=== PATIENT | female | born 1975 | race Caucasian/White ===

== ENCOUNTER 2023-06-06 15:00 | Emergency (ER) | payer OTHER, SELFPAY ==
--- NOTE | ~2023-06-06 | CT_ITS ---
EXAMINATION: CT BRAIN W/O DATE: 06/06/2023 18:22 INDICATION: Head trauma TECHNIQUE: Computed tomography (CT) of the head was performed without intravenous contrast. The dose- length product was 605.33 mGy-cm. Automated exposure control and iterative reconstruction technique w ere employed. COMPARISON: No prior studies for comparison. FINDINGS: Normal brain parenchymal volume for age. Normal siegel-white differentiation. No acute intrac ranial hemorrhage, infarction, mass or mass effect. No ventriculomegaly or midline shift. Midline sagittal images demonstrate a normal corpus callosum, c raniovertebral junction and sella turcica. Basilar cisterns are patent. There is mucosal thickening of the ethmoid sinuses. Mastoids are pneumatized. No depressed skull frac tures. IMPRESSION: 1. No acute intracranial abnormality. Reviewed, dictated and finalized at location A. ITURE INSPECTOR
[2023-06-06 15:15] VITALS: BP 147/88; PULSE 73; RESP 18; TEMP 36.5; O2SAT 100
--- NOTE | 2023-06-06 17:48 | ED.GENADULT ---
HPI - General Adult General Chief complaint: Head Injury Stated complaint: hit head Time Seen by Provider: 06/06/23 17:00 Source: patient Mode of arrival: ambulatory Limitations: no limitations History of Present Illness HPI narrative: This is a 47-year-old female presents to the ED with chief complaint of Head injury that occurred at 12:30 p.m. today. She was at work when she was struck in head with a heavy cart. Reports she was struck in the front of the head and has had a frontal headache ever since. Reports some right-sided paresthesias in the face. She also reports history of migraines and feels like she may have a migraine coming on from the injury. Reports some nausea but no vomiting. Denies syncope, problems with ambulation, speech change, vision change, any further sites of pain or injury Related Data Allergies Allergy/AdvReac Type Severity Reaction Status Date / Time ketorolac [From Toradol] AdvReac Gastrointestinal Verified 06/06/23 18:16 Upset prochlorperazine AdvReac Jittery Verified 06/06/23 18:15 [From Compazine] Review of Systems Review of Systems: All systems as dictated in HPI Exam Narrative: GENERAL: Well-appearing, well-nourished, and in no acute distress. HEAD: Normocephalic, atraumatic. EYES: PERRLA and EOMI. ENT: Nares clear, no rhinorrhea or epistaxis. Mucous membranes moist. Oropharynx without tonsillar hypertrophy exudate or other lesions. NECK: Supple. No adenopathy or masses. CHEST: No respiratory distress. Clear to auscultation. No wheezes rales or rhonchi HEART: Regular rate and rhythm. No murmur heard. Normal peripheral pulses. ABDOMEN: Soft, nontender, nondistended, normal active bowel sounds. MSK: Normal range of motion. No edema. SKIN: Warm, dry, no rash. NEURO: Alert and oriented x4. subjective altered sensation to the right V1 V2 Maxillary Branches. otherwise no focal deficits. Cranial nerves fully intact otherwise. No motor deficits appreciated. Negative pronator drift. Normal finger-nose. Ambulatory without difficulty. No dysarthria. No nystagmus. PSYCH: Normal mood and affect. Course Vital Signs Vital signs: Vital Signs Temperature 97.7 F 06/06/23 15:15 Pulse Rate 73 06/06/23 15:15 Respiratory Rate 18 06/06/23 15:15 Blood Pressure 147/88 H 06/06/23 15:15 Pulse Oximetry 100 06/06/23 15:15 Temperature 97.7 F 06/06/23 15:15 Pulse Rate 72 06/06/23 19:27 Respiratory Rate 20 06/06/23 19:27 Blood Pressure 125/72 06/06/23 19:27 Pulse Oximetry 100 06/06/23 19:27 Medical Decision Making MDM Narrative Medical decision making narrative: this is a 47-year-old female who presents to the ED with chief complaint of a head injury that occurred work today. Vitals are normal. She has subjective paresthesias numbness to the right side of the face following the injury. Otherwise neuro exam is fully intact. No motor deficits appreciated. CT brain is normal. She has a history of chronic migraines and feels like he injury today is precipitating a typical migraine for her. I suspect that this is the likely causative factor facial paresthesias. Migraine cocktail was given with moderate relief. Pt will be discharged in stable condition. Return precautions given and supportive measures discussed. Pt is understanding and agreeable with plan for discharge and follow-up with PCP. Vital Signs Vital Signs: Vital Signs Temperature 97.7 F 06/06/23 15:15 Pulse Rate 73 06/06/23 15:15 Respiratory Rate 18 06/06/23 15:15 Blood Pressure 147/88 H 06/06/23 15:15 Pulse Oximetry 100 06/06/23 15:15 Temperature 97.7 F 06/06/23 15:15 Pulse Rate 72 06/06/23 19:27 Respiratory Rate 20 06/06/23 19:27 Blood Pressure 125/72 06/06/23 19:27 Pulse Oximetry 100 06/06/23 19:27 Discharge Plan Discharge Clinical Impression: Closed head injury Patient Disposition: Home, Self-Care
[2023-06-06] MEDS: SODIUM CHLORIDE 0.9% IV 1,000 ML 999 ML IV CONT (18:15)
[2023-06-06] MEDS: ACETAMINOPHEN 500 MG TABLET 1000 MG PO (18:38)
[2023-06-06] MEDS: diphenhydrAMINE HCl INJ 50 MG/ML VIAL 25 MG IV PUSH (18:39)
[2023-06-06] MEDS: MAGNESIUM SULF 2 GM/WATER 50ML 2 GM/50 ML BAG IVPB (18:51)
[2023-06-06 19:27] VITALS: BP 125/72; PULSE 72; RESP 20; O2SAT 100
== END 2023-06-06 19:55 | disposition home or self-care (01) ==
PROVIDERS: Emergency Provider Physician Assistant
DX: S09.90XA Unspecified injury of head, initial encounter (principal); W22.8XXA Striking against or struck by other objects, initial encounter
CPT/HCPCS: 70450; 96365; 96375; 99284; A9270; J1200; J3475; J7030

== ENCOUNTER 2023-08-09 09:56 | Emergency (ER) | payer OTHER, SELFPAY ==
[2023-08-09 10:20] VITALS: BP 104/76; PULSE 88; RESP 16; TEMP 37.4; O2SAT 99
[2023-08-09 10:51] VITALS: BP 104/76; PULSE 88; RESP 16; TEMP 37.4; O2SAT 99
--- NOTE | 2023-08-09 11:09 | ED.URI ---
HPI - URI/Sore Throat General Chief Complaint: Upper Respiratory Infection Stated Complaint: Cough/Asthma Time Seen by Provider: 08/09/23 11:10 Source: patient, RN notes reviewed and old records reviewed Mode of arrival: ambulatory Limitations: no limitations History of Present Illness HPI Narrative: 48-year-old female who presents to [facility] complaints of continued cough since having RSV in June. Patient reports that she has used inhaler but continues to have cough with some expectoration of clear mucus, denies any fevers chills or sweats or any body aches. Patient does report that she feels some shortness of breath at times especially with activity. MD elicited complaint: cough and other (Clear mucus) Onset (ago): month(s) (2) Description of mucous: clear Able to tolerate fluids by mouth: Yes Treatments prior to arrival: other (Has used inhaler) Related Data Home Medications Medication Instructions Recorded Confirmed albuterol sulfate 90 mcg/actuation inhalation 08/09/23 aerosol inhaler Allergies Allergy/AdvReac Type Severity Reaction Status Date / Time ketorolac [From Toradol] AdvReac Gastrointestinal Verified 08/09/23 10:20 Upset prochlorperazine AdvReac Jittery Verified 08/09/23 10:20 [From Compazine] Review of Systems Review of Systems: CONSTITUTIONAL: Denies malaise, chills, sweats, or fever. EYES: Denies visual changes, redness, or discharge. ENT: Reports no rhinorrhea, congestion, sinus pain, otalgia and sore throat. CARDIOVASCULAR: Denies chest pain, palpitations, or edema. RESPIRATORY: Reports cough.? Report some dyspnea with exertion. GASTROINTESTINAL: Denies abdominal pain, nausea, vomiting, diarrhea SKIN: Denies rash or itching. MUSCULOSKELETAL: Denies myalgia. NEUROLOGIC: Denies headache. All systems reviewed & are unremarkable except as noted in HPI and below PMFSH Past Medical History Medical History (Updated 08/10/23 @ 19:25 by Mallika Sims NP) Asthma Bronchitis COVID-19 History of RSV infection Surgical History Surgical History (Updated 08/10/23 @ 19:26 by Mallika Sims NP) H/O: hysterectomy Social History Social History (Updated 08/10/23 @ 19:23 by Mallika L. Bethany, WEB DEVELOPMENT MANAGER) Smoking status: Current every day smoker Tobacco type: e-cigarettes/vaping Living arrangements: with family Gender identity (if verbalized by the patient): Female Comments At time of signature, agree with nursing past medical, surgical, social and family history. There is no relevant family history pertinent to the presenting complaint Exam Narrative: GENERAL: Well-appearing, well-nourished, and in no acute distress. HEAD: Normocephalic EYES: PERRLA, conjunctivae clear ENT: Nares clear, turbinates edematous and erythematous, clear discharge. Mucous membranes moist. TM pearly siegel with dull light reflex bilaterally; no tragal tenderness. Oropharynx erythematous without lesions. Tonsils not enlarged and without exudate, no drooling, no hoarseness, no trismus, uvula midline. NECK: Supple. No lymphadenopathy CHEST: Clear to auscultation, breath sounds equal. No wheezing, rhonchi, rales, or stridor. No respiratory distress, speaks in full sentences.cough,SAO2 99% on room air HEART: Regular rate and rhythm. No murmur heard. SKIN: Warm, dry, no rash. NEURO: Alert and oriented x3. PSYCH: Normal mood and affect Course Course Emergency Course: Patient is aware of diagnosis, understands and agrees to treatment plan.? Anticipatory guidance given.? Patient agrees to follow-up as directed and is aware of reasons to seek care at the emergency department. Portions of this record may have been created with voice recognition software Level of Care: Express Care Visit Vital Signs Vital signs: Vital Signs Temperature 37.4 C 08/09/23 10:20 Pulse Rate 88 08/09/23 10:20 Respiratory Rate 16 08/09/23 10:20 Blood Pressure 104
== END 2023-08-09 11:30 | disposition home or self-care (01) ==
PROVIDERS: Emergency Provider Registered Nurse
DX: R05.3 Chronic cough (principal); F17.290 Nicotine dependence, other tobacco product, uncomplicated; J45.909 Unspecified asthma, uncomplicated; Z86.16 Personal history of COVID-19
CPT/HCPCS: 99213; G0463

== ENCOUNTER 2023-08-18 13:48 | Emergency (ER) | payer OTHER, SELFPAY ==
--- NOTE | ~2023-08-18 | XR_ITS ---
EXAMINATION: XR chest 2V DATE: 08/18/2023 14:46 INDICATION: Cough. Shortness of breath. TECHNIQUE: Frontal and lateral views of the chest were obtained. COMPARISON: None. FINDINGS: There is no pneumonia, pleural effusion, or pneumothorax. The heart size is normal. IMPRESSION: 1. No acute cardiopulmonary disease. Reviewed, dictated and finalized at location A. MUNITION STOREKEEPER
[2023-08-18 13:50] VITALS: BP 131/80; PULSE 100; RESP 20; TEMP 36.4; O2SAT 100
--- NOTE | 2023-08-18 13:54 | ECG_ITS ---
Measurements Intervals [place] Rate: 91 P: 59 NH: 147 QRS: -26 QRSD: 89 T: 32 QT: 360 QTc: 444 Interpretive Statements SINUS RHYTHM WITH SINUS ARRHYTHMIA BORDERLINE LEFT AXIS DEVIATION [QRS AXIS < -20] NO PREVIOUS ECG AVAILABLE FOR COMPARISON Electronically Signed On 08-18-2023 15:22:48 GRAIN COMBINER by Stas Clifton M.D.
--- NOTE | 2023-08-18 14:29 | ED.ASTHMA ---
HPI - Asthma General Chief Complaint: Asthma <RICHARD Barreto Last Filed: 08/18/23 14:38> Stated Complaint: asthma <Sabrina Dupont PA-C - Last Filed: 08/18/23 14:38> Time Seen by Provider: 08/18/23 14:29 <Sabrina Dupont PA-C - Last Filed: 08/18/23 14:38> Focused HPI: Patient is a 48-year-old female, past medical history of asthma, who presents the ED with report of shortness breath. Patient reports she was diagnosed with RSV on 06/12/23 and has had persistent symptoms since then. She has been on 2 different courses of steroids and been using her inhalers at home w/o much improvement. Last night, she began having pain in her R sided chest, R upper back last night - worse with movement and taking deep breaths. She began feeling short of breath today at work with any sort of exertion, which prompted her presentation. Denies chest pain at rest. Denies lower extremity pain or swelling. Denies history of blood clots. Denies persistent fevers. GENERAL: Well-appearing, well-nourished, and in no acute distress. HEAD: Normocephalic, atraumatic. CHEST: Clear to auscultation. ?No respiratory distress. No significant focal lung sounds. No wheezing. HEART: Regular rate and rhythm.? MSK: No chest wall tenderness to palpation, unable to reproduce R sided chest/back pain. NEURO: ?Alert and oriented x3. Patient screened in triage and initial orders placed.? ?Additional care and disposition to be based upon?diagnostic testing and treatment. <Sabrina Dupont PA-C - Last Filed: 08/18/23 14:38> Related Data Home Medications: Home Medications Medication Instructions Recorded Confirmed albuterol sulfate 90 mcg/actuation inhalation 08/09/23 aerosol inhaler <RICHARD Barreto Last Filed: 08/18/23 14:38> Allergies/Adverse Reactions: Allergies Allergy/AdvReac Type Severity Reaction Status Date / Time ketorolac [From Toradol] AdvReac Gastrointestinal Verified 08/09/23 10:20 Upset prochlorperazine AdvReac Jittery Verified 08/09/23 10:20 [From Compazine] <Sabrina Dupont PA-C - Last Filed: 08/18/23 14:38> Review of Systems Review of Systems: All systems as dictated in HPI <Gagandeep Boston PA-C - Last Filed: 08/18/23 23:19> PMFSH Past Medical History Medical History: Medical History (Updated 08/18/23 @ 17:40 by Gagandeep Boston PA-C) Asthma Bronchitis COVID-19 History of RSV infection <Sabrina Dupont PA-C - Last Filed: 08/18/23 14:38> Surgical History Surgical History: Surgical History (Updated 08/10/23 @ 19:26 by Mallika Sims NP) H/O: hysterectomy <Sabrina Dupont PA-C - Last Filed: 08/18/23 14:38> Social History Social History: Social History (Updated 08/10/23 @ 19:23 by Mallika Sims NP) Smoking status: Current every day smoker Tobacco type: e-cigarettes/vaping Living arrangements: with family Gender identity (if verbalized by the patient): Female <Sabrina Dupont PA-C - Last Filed: 08/18/23 14:38> Exam Narrative: GENERAL: Well-appearing, well-nourished, and in no acute distress. HEAD: Normocephalic, atraumatic. EYES: PERRLA and EOMI. ENT: Nares clear, no rhinorrhea or epistaxis. Mucous membranes moist. Oropharynx without tonsillar hypertrophy exudate or other lesions. NECK: Supple. No adenopathy or masses. CHEST: No respiratory distress. Mild expiratory wheezes throughout all lung north. Sats 98% room air. Speaks in full sentences HEART: Regular rate and rhythm. No murmur heard. Normal peripheral pulses. ABDOMEN: Soft, nontender, nondistended, normal active bowel sounds. MSK: Normal range of motion. No edema. SKIN: Warm, dry, no rash. NEURO: Alert and oriented x3. No focal deficits. PSYCH: Normal mood and affect. <Gagandeep Boston PA-C - Last Filed: 08/18/23 23:19> Course Vital Signs Vital signs: Vital Signs Temperature 97.6 F
[2023-08-18 14:44] VITALS: O2SAT 100
--- NOTE | 2023-08-18 14:46 | PC.NURSE ---
Pt presented with multiple resp c/o. Able to converse in complete sentences rapidly without shortness of breath. States had RSV 06/12/23 and doesn't feel like she is any better. Voiced concerns that her mother 05/28 with lung cancer and has concerns she has lung cancer.
[2023-08-18 14:59] LABS: Basophils Absolute Auto 0.1 K/mm3 (0.0-0.1); Basophils Percent Auto 0.5 % (0.2-1.2); Eosinophils Absolute Auto 1.2 K/mm3 (0-0.3); Hematocrit 42.3 % (37.0-47.0); Hemoglobin 14.2 g/dL (12.0-15.0); Immature Granulocyte Absolute 0.17 K/mm3 (0.00-0.031); Immature Granulocyte Percent A 1.9 % (0-0.5); Lymphocytes Absolute Auto 0.96 K/mm3 (0.9-3.2); Lymphocytes Percent Auto 10.5 % (18.3-44.2); Mean Corpuscular HGB Conc 33.6 g/dl (32-36); Mean Corpuscular Hemoglobin 30.9 pg (26-34); Mean Corpuscular Volume 92.2 fl (80-100); Mean Platelet Volume 10.7 fl (7.4-10.4); Monocytes Absolute Auto 0.5 K/mm3 (0.1-0.6); Monocytes Percent Auto 5.3 % (2.6-8.5); Neutrophils Absolute Auto 6.3 K/mm3 (1.3-6.7); Neutrophils Percent Auto 68.8 % (45.5-73.1); Platelet Count Result 232 k/mm3 (150-375); Red Blood Count 4.59 M/mm3 (4.2-5.4); Red Cell Distribution Width 12.7 % (11.5-14.5); White Blood Count 9.2 K/mm3 (4.5-10.0)
[2023-08-18 15:10] LABS: INR 0.9; Prothrombin Time 12.8 Seconds (11.1-14.7)
[2023-08-18 15:11] LABS: Partial Thromboplastin Time 29.1 SECONDS (22.3-36.8)
[2023-08-18 15:18] LABS: Alanine Aminotransferase 21 U/L (6-35); Alkaline Phosphatase 79 U/L (38-126); Anion Gap 9 mmol/L (8-16); Aspartate Amino Transferase 30 U/L (14-36); Bilirubin,Total 0.8 mg/dL (0.2-1.3); Blood Urea Nitrogen 16 mg/dL (7-17); Calcium 10.2 mg/dL (8.4-10.2); Carbon Dioxide 26 mmol/L (22-30); Chloride 102 mmol/L (98-107); Estimated CRCL calculation 78 ml/min; Estimated Glomerular Filt Rate > 60; Glucose 92 mg/dL (65-110); Sodium 137 mmol/L (137-145)
[2023-08-18 15:22] LABS: D Dimer 0.34 ug/mL (<0.48)
[2023-08-18 15:27] LABS: Troponin I < 0.012 ng/mL (0.000-0.034)
[2023-08-18 17:02] VITALS: BP 129/79; PULSE 73; RESP 17; O2SAT 100
--- NOTE | 2023-08-18 17:38 | ED.GENADULT ---
HPI - General Adult General Chief complaint: Asthma Stated complaint: asthma Time Seen by Provider: 08/18/23 14:29 Related Data Home Medications Medication Instructions Recorded Confirmed albuterol sulfate 90 mcg/actuation inhalation 08/09/23 aerosol inhaler Allergies Allergy/AdvReac Type Severity Reaction Status Date / Time ketorolac [From Toradol] AdvReac Gastrointestinal Verified 08/09/23 10:20 Upset prochlorperazine AdvReac Jittery Verified 08/09/23 10:20 [From Compazine] [facility] Past Medical History Medical History (Updated 08/18/23 @ 17:40 by Gagandeep Boston PA-C) Asthma Bronchitis COVID-19 History of RSV infection Surgical History Surgical History (Updated 08/10/23 @ 19:26 by Mallika Sims NP) H/O: hysterectomy Social History Social History (Updated 08/10/23 @ 19:23 by Mallika Sims NP) Smoking status: Current every day smoker Tobacco type: e-cigarettes/vaping Living arrangements: with family Gender identity (if verbalized by the patient): Female Course Vital Signs Vital signs: Vital Signs Temperature 97.6 F 08/18/23 13:50 Pulse Rate 100 08/18/23 13:50 Respiratory Rate 20 08/18/23 13:50 Blood Pressure 131/80 08/18/23 13:50 Pulse Oximetry 100 08/18/23 13:50 Oxygen Delivery Room Air 08/18/23 13:50 Temperature 97.6 F 08/18/23 13:50 Pulse Rate 73 08/18/23 17:02 Respiratory Rate 17 08/18/23 17:02 Blood Pressure 129/79 08/18/23 17:02 Pulse Oximetry 100 08/18/23 17:02 Oxygen Delivery Room Air 08/18/23 14:44 Medical Decision Making Vital Signs Vital Signs: Vital Signs Temperature 97.6 F 08/18/23 13:50 Pulse Rate 100 08/18/23 13:50 Respiratory Rate 20 08/18/23 13:50 Blood Pressure 131/80 08/18/23 13:50 Pulse Oximetry 100 08/18/23 13:50 Oxygen Delivery Room Air 08/18/23 13:50 Temperature 97.6 F 08/18/23 13:50 Pulse Rate 73 08/18/23 17:02 Respiratory Rate 17 08/18/23 17:02 Blood Pressure 129/79 08/18/23 17:02 Pulse Oximetry 100 08/18/23 17:02 Oxygen Delivery Room Air 08/18/23 14:44 Lab Data 08/18/23 14:40 08/18/23 14:40 Labs: Lab Results 08/18/23 Range/Units 14:40 WBC 9.2 (4.5-10.0) K/mm3 RBC 4.59 (4.2-5.4) M/mm3 Hgb 14.2 (12.0-15.0) g/dL Hct 42.3 (37.0-47.0) % MCV 92.2 (80-100) fl MCH 30.9 (26-34) pg MCHC 33.6 (32-36) g/dl RDW 12.7 (11.5-14.5) % Plt Count 232 (150-375) k/mm3 MPV 10.7 H (7.4-10.4) fl Immature Gran % (Auto) 1.9 H (0-0.5) % Neut % (Auto) 68.8 (45.5-73.1) % Lymph % (Auto) 10.5 L (18.3-44.2) % [place] % (Auto) 5.3 (2.6-8.5) % Eos % (Auto) 13.0 H (0-4.4) % Baso % (Auto) 0.5 (0.2-1.2) % Lymph # (Auto) 0.96 (0.9-3.2) K/mm3 [place] # (Auto) 0.5 (0.1-0.6) K/mm3 Eos # (Auto) 1.2 H (0-0.3) K/mm3 Baso # (Auto) 0.1 (0.0-0.1) K/mm3 Abs Immat Gran (auto) 0.17 H (0.00-0.031) K/mm3 Absolute Neuts (auto) 6.3 (1.3-6.7) K/mm3 Absolute Nucleated RBC 0.0 (0.0-0.012) K/mm3 Nucleated RBC % 0.0 (0.0-0.2) % PT 12.8 (11.1-14.7) Seconds INR 0.9 APTT 29.1 (22.3-36.8) SECONDS D-Dimer 0.34 (<0.48) ug/mL Sodium 137 (137-145) mmol/L Potassium 4.0 (3.4-5.0) mmol/L Chloride 102 (98-107) mmol/L Carbon Dioxide 26 (22-30) mmol/L Anion Gap 9 (8-16) mmol/L BUN 16 (7-17) mg/dL Creatinine 0.70 (0.7-1.0) mg/dL Estim Creat Clear Calc 78 ml/min Estimated GFR > 60 (59 - ) Glucose 92 (65-110) mg/dL Calcium 10.2 (8.4-10.2) mg/dL Total Bilirubin 0.8 (0.2-1.3) mg/dL AST 30 (14-36) U/L ALT 21 (6-35) U/L Alkaline Phosphatase 79 (38-126) U/L Troponin I < 0.012 (0.000-0.034) ng/mL Total Protein 9.0 H (6.3-8.2) g/dL Albumin 5.0 (3.5-5.1) g/dL Discharge Plan Discharge Clinical Impression: Bronchitis Patient Disposition: Home, Self-Care Condition: Stable Instructions: Antibiotic Form, Asthma (ED)
[2023-08-18 17:52] VITALS: BP 111/84; PULSE 79; RESP 17; TEMP 36.8; O2SAT 98
== END 2023-08-18 17:56 | disposition home or self-care (01) ==
PROVIDERS: Physician Assistant; Emergency Provider Physician Assistant
DX: J40 Bronchitis, not specified as acute or chronic (principal)
CPT/HCPCS: 36415; 71046; 80053; 84484; 85025; 85380; 85610; 85730; 93005; 99284

== ENCOUNTER 2023-08-26 10:37 | Emergency (ER) | payer OTHER, SELFPAY ==
--- NOTE | ~2023-08-26 | XR_ITS ---
Clinical Indication: Shortness of breath PA and lateral views of the chest: Comparison: 08/18/2023 Findings: The lungs are clear, without evidence of focal consolidation or pleural effusion. Cardiome diastinal silhouette is within normal limits. Bones and soft tissues are unremarkable. Impression: Normal chest. Reviewed, dictated and finalized at [facility]. NIGHT CASHIER Impression: Normal chest.
[2023-08-26 10:45] VITALS: BP 130/75; PULSE 90; RESP 21; TEMP 36.7; O2SAT 100
[2023-08-26 11:16] LABS: Basophils Absolute Auto 0.1 K/mm3 (0.0-0.1); Basophils Percent Auto 1.6 % (0.2-1.2); Eosinophils Absolute Auto 0.7 K/mm3 (0-0.3); Eosinophils Percent Auto 18.2 % (0-4.4); Hematocrit 38.8 % (37.0-47.0); Hemoglobin 12.9 g/dL (12.0-15.0); Lymphocytes Absolute Auto 1.12 K/mm3 (0.9-3.2); Lymphocytes Percent Auto 30.4 % (18.3-44.2); Mean Corpuscular HGB Conc 33.2 g/dl (32-36); Mean Corpuscular Hemoglobin 30.5 pg (26-34); Mean Corpuscular Volume 91.7 fl (80-100); Monocytes Absolute Auto 0.3 K/mm3 (0.1-0.6); Monocytes Percent Auto 7.3 % (2.6-8.5); Neutrophils Absolute Auto 1.6 K/mm3 (1.3-6.7); Neutrophils Percent Auto 42.5 % (45.5-73.1); Platelet Count Result 174 k/mm3 (150-375); Red Blood Count 4.23 M/mm3 (4.2-5.4); Red Cell Distribution Width 12.4 % (11.5-14.5); White Blood Count 3.7 K/mm3 (4.5-10.0)
[2023-08-26 11:26] LABS: Alanine Aminotransferase 20 U/L (6-35); Albumin Level 4.6 g/dL (3.5-5.1); Alkaline Phosphatase 59 U/L (38-126); Anion Gap 7 mmol/L (8-16); Aspartate Amino Transferase 28 U/L (14-36); Bilirubin,Total 0.3 mg/dL (0.2-1.3); Blood Urea Nitrogen 12 mg/dL (7-17); Calcium 9.6 mg/dL (8.4-10.2); Carbon Dioxide 22 mmol/L (22-30); Chloride 109 mmol/L (98-107); Estimated Glomerular Filt Rate > 60; Glucose 109 mg/dL (65-110); Potassium 3.2 mmol/L (3.4-5.0); Sodium 138 mmol/L (137-145)
[2023-08-26 11:52] LABS: Influenza A QL RT-PCR Negative (Negative); Influenza B QL RT-PCR Negative (Negative); RSV RNA, RT-PCR Negative (Negative); SARS-CoV-2 RNA PCR Negative (Negative)
--- NOTE | 2023-08-26 13:00 | ED.ASTHMA ---
HPI - Asthma General Chief Complaint: Asthma Stated Complaint: SOB Time Seen by Provider: 08/26/23 10:41 History of Present Illness HPI Narrative: Patient is a 48-year-old female who presents ER with shortness of breath. She was at work when she is coming back in side from a break and she developed sudden onset shortness of breath. She has history of asthma. Wheezing for EMS. Received DuoNeb as well as Solu-Medrol magnesium. No fevers or chills or sweats. No productive cough. Patient is feeling shaking anxious since having her breathing treatments. Related Data Home Medications Medication Instructions Recorded Confirmed albuterol sulfate 90 mcg/actuation inhalation 08/09/23 aerosol inhaler Allergies Allergy/AdvReac Type Severity Reaction Status Date / Time ketorolac [From Toradol] AdvReac Gastrointestinal Verified 08/26/23 10:46 Upset prochlorperazine AdvReac Jittery Verified 08/26/23 10:46 [From Compazine] Review of Systems Constitutional: Constitutional: Reports no additional constitutional complaints ENT: Reports system reviewed and no additional complaints, except as documented Cardiovascular: Cardiovascular: Reports no additional cardiovascular complaints Respiratory: Respiratory: Denies cough, Reports dyspnea and Reports wheezing Gastrointestinal: Gastrointestinal: Reports no additional gastrointestinal complaints Psychiatric: Psychiatric: Reports anxiety PMFSH Past Medical History Medical History (Updated 08/26/23 @ 13:03 by Mayito Clayton MD) Asthma Bronchitis COVID-19 History of RSV infection Surgical History Surgical History (Updated 08/10/23 @ 19:26 by Mallika Sims NP) H/O: hysterectomy Social History Social History (Updated 08/10/23 @ 19:23 by Mallika Sims NP) Smoking status: Current every day smoker Tobacco type: e-cigarettes/vaping Living arrangements: with family Gender identity (if verbalized by the patient): Female Exam Narrative: GENERAL: Well-appearing, well-nourished, and in no acute distress. HEAD: Normocephalic, atraumatic. ENT: Mucous membranes moist. NECK: Supple. CHEST: Clear to auscultation. No respiratory distress. HEART: Regular rate and rhythm. Normal peripheral pulses.. EXTREMITIES: Normal range of motion. No edema. SKIN: Warm, dry, no rash. NEURO: Alert and oriented x3. PSYCH: Normal mood and affect. Course Course Emergency Course: Patient is still feeling some mild anxiety. Will give hydroxyzine. Lab/imaging /viral swab unremarkable. Discharge home with short course steroids and albuterol. Vital Signs Vital signs: Vital Signs Temperature 98.1 F 08/26/23 10:45 Pulse Rate 90 08/26/23 10:45 Respiratory Rate 21 H 08/26/23 10:45 Blood Pressure 130/75 08/26/23 10:45 Pulse Oximetry 100 08/26/23 10:45 Temperature 98.1 F 08/26/23 10:45 Pulse Rate 90 08/26/23 10:45 Respiratory Rate 21 H 08/26/23 10:45 Blood Pressure 130/75 08/26/23 10:45 Pulse Oximetry 100 08/26/23 10:45 MDM - Asthma Lab Data 08/26/23 11:05 08/26/23 11:05 Labs: Lab Results 08/26/23 Range/Units 11:05 WBC 3.7 L (4.5-10.0) K/mm3 RBC 4.23 (4.2-5.4) M/mm3 Hgb 12.9 (12.0-15.0) g/dL Hct 38.8 (37.0-47.0) % MCV 91.7 (80-100) fl MCH 30.5 (26-34) pg MCHC 33.2 (32-36) g/dl RDW 12.4 (11.5-14.5) % Plt Count 174 (150-375) k/mm3 MPV 11.0 H (7.4-10.4) fl Immature Gran % (Auto) 0.0 (0-0.5) % Neut % (Auto) 42.5 L (45.5-73.1) % Lymph % (Auto) 30.4 (18.3-44.2) % [place] % (Auto) 7.3 (2.6-8.5) % Eos % (Auto) 18.2 H (0-4.4) % Baso % (Auto) 1.6 H (0.2-1.2) % Lymph # (Auto) 1.12 (0.9-3.2) K/mm3 [place] # (Auto) 0.3 (0.1-0.6) K/mm3 Eos # (Auto) 0.7 H (0-0.3) K/mm3 Baso # (Auto) 0.1 (0.0-0.1) K/mm3 Abs Immat Gran (auto) 0.00 (0.00-0.031) K/mm3 Absolute Neuts (auto) 1.6 (1.3-6.7) K/mm3 Absolute Nucleated R
[2023-08-26] MEDS: hydrOXYzine HCL 25 MG TABLET PO (13:03)
[2023-08-26 13:11] VITALS: BP 109/64; PULSE 87; RESP 16; O2SAT 97
== END 2023-08-26 13:13 | disposition home or self-care (01) ==
PROVIDERS: Emergency Provider Emergency Medicine
DX: J45.901 Unspecified asthma with (acute) exacerbation (principal); F41.9 Anxiety disorder, unspecified; Z20.822 Contact with and (suspected) exposure to COVID-19; F17.290 Nicotine dependence, other tobacco product, uncomplicated
CPT/HCPCS: 36415; 71046; 80053; 85025; 87637; 99283; A9270

== ENCOUNTER 2023-12-10 16:10 | Emergency (ER) | payer OTHER, SELFPAY ==
--- NOTE | 2023-12-10 16:23 | ED.ASTHMA ---
HPI - Asthma General Chief Complaint: Asthma Stated Complaint: asthma flare up Source: patient Mode of arrival: ambulatory Limitations: no limitations History of Present Illness HPI Narrative: 48-year-old female with a history of asthma presented for complaint of tightness in chest for about 2 weeks and started with wheezing and cough over the past few days. States she had a fever 2 days ago which has resolved; tested negative for Covid x2. Endorses using her albuterol inhaler multiple times today. Denies chest pain, palpitations, nausea, vomiting, diarrhea or lethargy. Uses vape. Related Data Home Medications Medication Instructions Recorded Confirmed budesonide-formoterol HFA 80 2 puff inhalation BID 12/10/23 12/10/23 mcg-4.5 mcg/actuation aerosol inhaler Allergies Allergy/AdvReac Type Severity Reaction Status Date / Time ketorolac [From Toradol] AdvReac Gastrointestinal Verified 08/26/23 10:46 Upset prochlorperazine AdvReac Jittery Verified 08/26/23 10:46 [From Compazine] Review of Systems Review of Systems: CONSTITUTIONAL: Denies body aches, fever, chills, or sweats. EYES: Denies visual changes, redness, or discharge. ENT: Reports rhinorrhea, congestion, denies sore throat, or otalgia. CARDIOVASCULAR: Denies chest pain, palpitations, or edema. RESPIRATORY: Reports cough, sob, wheezing. GASTROINTESTINAL: Denies abdominal pain, nausea, vomiting, or diarrhea. SKIN: Denies rash, itching, or wounds. MUSCULOSKELETAL: Denies back pain, joint pain, or myalgia. NEUROLOGIC: Denies headache PSYCH: Denies depression or anxiety. All systems reviewed & are unremarkable except as noted in HPI and below PMFSH Past Medical History Medical History Asthma Bronchitis COVID-19 History of RSV infection Surgical History Surgical History H/O: hysterectomy Social History Social History Smoking status: Current every day smoker Tobacco type: e-cigarettes/vaping Living arrangements: with family Gender identity (if verbalized by the patient): Female Comments At time of signature, I have reviewed and agree with nursing past medical, surgical, social and family history unless otherwise noted. Please see nursing chart for further information. There is no relevant family history pertinent to the presenting complaint Exam Narrative: GENERAL: Well-appearing, in no acute distress. EYES: EOMI. No redness or drainage. Conjunctivae normal. ENT: Mucous membranes pink and moist. No rhinorrhea. TMs normal bilaterally. Throat normal. Uvula midline. CHEST: No respiratory distress. End Inspiratory and expiratory wheezing to all north. Speaks full sentences, no cough. HEART: Regular rate and rhythm. No murmur appreciated. ABDOMEN: Soft, nontender, nondistended, normal active bowel sounds. SKIN: Warm, dry, no rash. Capillary refill normal. Normal skin turgor. NEURO: Alert and oriented x3. Gait steady. Course Course Emergency Course: Patient is aware of diagnosis, understands and agrees to treatment plan. Anticipatory guidance given. Patient agrees to follow-up as directed and is aware of reasons to seek care at the emergency department. Portions of this record may have been created with voice recognition software Level of Care: Express Care Visit Vital Signs Vital signs: Vital Signs Temperature 98.9 F 12/10/23 16:40 Pulse Rate 95 12/10/23 16:40 Respiratory Rate 16 12/10/23 16:40 Blood Pressure 118/82 12/10/23 16:40 Pulse Oximetry 99 12/10/23 16:40 Oxygen Delivery Room Air 12/10/23 16:40 Temperature 98.9 F 12/10/23 16:40 Pulse Rate 95 12/10/23 16:40 Respiratory Rate 16 12/10/23 16:40 Blood Pressure 118/82 12/10/23 16:40 Pulse Oximetry 99 12/10/23 16:40 Oxygen Delivery Room
[2023-12-10] MEDS: methylPREDNISolone SOD SUCC 125 MG VIAL IM (16:34)
[2023-12-10] MEDS: IPRATROPIUM BR 0.02% INH SOLN 0.5 MG/2.5 ML VIAL INHALATION (16:35)
[2023-12-10] MEDS: ALBUTEROL SULFATE NEB 2.5 MG/3 ML INH INHALATION (16:36)
[2023-12-10 16:40] VITALS: BP 118/82; PULSE 95; RESP 16; TEMP 37.2; O2SAT 99
[2023-12-10 17:10] VITALS: PULSE 100; RESP 16; O2SAT 99
== END 2023-12-10 17:10 | disposition home or self-care (01) ==
PROVIDERS: Emergency Provider Nurse Practitioner Family
DX: J45.901 Unspecified asthma with (acute) exacerbation (principal); F17.290 Nicotine dependence, other tobacco product, uncomplicated; Z86.16 Personal history of COVID-19
CPT/HCPCS: 94640; 96372; 99213; G0463; J2919

== ENCOUNTER 2024-08-03 10:26 | Emergency (ER) | payer OTHER, SELFPAY ==
[2024-08-03 10:35] VITALS: BP 129/80; PULSE 75; RESP 16; TEMP 36.6; O2SAT 100
--- NOTE | 2024-08-03 10:42 | ED.FEMALEGU ---
HPI - Female Genitourinary General Chief complaint: Urogenital-Female Stated complaint: poss UTI Time Seen by Provider: 08/03/24 10:42 Source: patient, RN notes reviewed and old records reviewed Mode of arrival: ambulatory Limitations: no limitations History of Present Illness HPI Narrative: 49yearold female who presents to [facility] care with complaints of cloudy looking urine past 2 weeks. Patient states she has had some right flank pain which started yesterday. Patient denies any burning or pain with urination patient has stated that she has noted some blood in her urine. Patient has a history of past UTI's. Patient states that she has been drinking more soda than usual and also some energy drinks. MD elicited complaint: UTI Pertinent past history: other (past UTI's) Onset (ago): week(s) (2 weeks urine cloudy right flank pain since yesterday) Location of symptoms: flank (right) Severity: mild Quality of pain: aching Vaginal discharge: none Vaginal bleeding: none Treatment prior to arrival: none Related Data Home Medications ?Medication ?Instructions ?Recorded ?Confirmed ?Last Taken ?Type budesonide-formoterol HFA 80 2 puff inhalation BID 12/10/23 12/10/23 Unknown History mcg-4.5 mcg/actuation aerosol inhaler fluoxetine 10 mg capsule mg 08/03/24 Unknown History Allergies Allergy/AdvReac Type Severity Reaction Status Date / Time morphine Allergy Unknown Unknown Verified 08/03/24 10:40 ketorolac (From Toradol) AdvReac Gastrointestinal Verified 08/03/24 10:40 Upset prochlorperazine (From AdvReac Jittery Verified 08/03/24 10:40 Compazine) Review of Systems Review of Systems: CONSTITUTIONAL: Denies fever, chills, or sweats. CARDIOVASCULAR: Denies chest pain, palpitations, or edema. RESPIRATORY: Denies cough or dyspnea. GASTROINTESTINAL: Denies abdominal pain, nausea, vomiting, or diarrhea. GENITOURINARY: Reports no dysuria, frequency, urgency. Positive right flank pain and hematuria. SKIN: Denies rash or itching. MUSCULOSKELETAL: Denies back pain or myalgia. Reports right CVA tenderness NEUROLOGIC: Denies headache All systems reviewed & are unremarkable except as noted in HPI and below PMFSH Past Medical History Medical History (Updated 08/04/24 @ 10:40 by Mallika Sims NP) Urinary tract infection History of RSV infection COVID-19 Bronchitis Asthma Surgical History Surgical History (Updated 08/03/24 @ 11:01 by Mallika Sims NP) Hx of cholecystectomy H/O: hysterectomy Social History Social History Smoking status: Current every day smoker Tobacco type: e-cigarettes/vaping Living arrangements: with family Gender identity (if verbalized by the patient): Female Comments At time of signature, agree with nursing past medical, surgical, social and family history. There is no relevant family history pertinent to the presenting complaint Exam Narrative: GENERAL: Well-appearing, well-nourished, and in no acute distress. HEAD: Normocephalic, atraumatic. NECK: Supple.no lymphadenopathy CHEST: Clear to auscultation. No respiratory distress.no cough or dyspnea noted SAO2 100% on room air HEART: Regular rate and rhythm. No murmur heard. Normal peripheral pulses. ABDOMEN: Soft, nontender, nondistended, normal active bowel sounds. Right CVA tenderness and noted blood in urine, states no pain with urination EXTREMITIES: Normal range of motion. No edema. SKIN: Warm, dry, no rash. NEURO: No focal deficits. Alert and oriented x3. Course Course Emergency Course: Patient is aware of diagnosis, understands and agrees to treatment plan.? Anticipatory guidance given.? Patient agrees to follow-up as directed and is aware of reasons to seek care at the emergency department. Portions of this record may have been created with voice recognition software Level of Care: Express Care Visit Vital Signs Vital signs: Vital Signs Temperature 36.6 C 08/03/24 10:35 Pulse Rate 75 08/03/24 10:35 Respiratory Rate 16 08/03/24 10:35 Blood Pressure 129/80 08/03/24 10:35 Pulse Oximetry 100 08/03/24 10:35 Oxygen Delivery Room Air 08/03/24 10:35 Temperature 36.6 C 08/03/24 10:35 Pulse Rate 75 08/03/24 10:35 Respiratory Rate 16 08/03/24 10:35 Blood Pressure 129/80 08/03/24 10:35 Pulse Oximetry 100 08/03/24 10:35 Oxygen Delivery Room Air 08/03/24 10:35 MDM - Female Genitourinary MDM Narrative Medical decision making narrative: Exam findings and UA show no acute concerns or changes; patient is non-toxic appearing and is in no distress.? Patient is appropriate for outpatient treatment and follow-up. Differential Diagnosis Differential diagnosis: Likely urinary tract infection, cystitis and other (right flank pain) Medical Records Attestation: I reviewed the patient's medical records. Lab Data Attestation: I reviewed the patient's lab results. Lab results narrative: Urine dip glucose negative bilirubin negative, ketone negative, specific gravity 1.025, blood trace intact, pH 6.0, protein negative, urobilinogen 0.2, nitrate positive', leukocyte negative, urine yellow and cloudy Labs: Lab Results 08/03/24 Range/Units 11:00 POC Urine Color Yellow POC Urine Clarity Cloudy POC Urine pH 6.0 POC Ur Specif [place] 1.025 POC Urine Protein Negative (Negative) POC Ur Glucose (UA) Negative (Negative) POC Urine Ketones Negative (Negative) POC Urine Blood Trace (Negative) POC Urine Nitrite Positive (Negative) POC Urine Bilirubin Negative (Negative) POC Urine Urobilinogen 0.2 POC U Leukocyte Esteras Negative (Negative) Critical Care Time Critical Care Time Critical Care Time: No Discharge Plan Discharge Clinical Impression: Urinary tract infection Qualifiers: Urinary tract infection type: site unspecified Hematuria presence: with hematuria Qualified Code(s): N39.0 - Urinary tract infection, site not specified; R31.9 - Hematuria, unspecified Patient Disposition: Home, Self-Care Condition: Stable Instructions: Antibiotic Form, Urinary Tract Infection in Women (ED) Additional Instructions: Increase fluids especially cranberry juice and water Avoid caffeine and carbonated beverages Antibiotic as directed Tylenol/ibuprofen for pain or fever Follow-up with her primary care provider if further problems or concerns Recheck if you have fever over 101, nausea and vomiting. If your symptoms persist, change or worsen significantly before you can contact your personal physician then please, without delay, go to the emergency department for further evaluation. Follow-up with PCP in 7-10 days or sooner if needed Follow up with PCP soon in regards to your blood pressure which is elevated above threshold for referral. Blood pressure above 120/80 may indicate pre-hypertension. 129/80 Urine culture sent Patient Language: Khmer Prescriptions: New sulfamethoxazole-trimethoprim [Bactrim DS] 800-160 mg tablet 1 tablet PO Q12H Qty: 20 0RF Rx Instructions: Take all doses of medication No Action albuterol sulfate 90 mcg/actuation HFA aerosol inhaler 2 puff inhalation QID PRN (Reason: shortness of breath or wheezing) Qty: 6.7 0RF budesonide-formoterol 80-4.5 mcg/actuation HFA aerosol inhaler 2 puff INHALATION BID albuterol sulfate 90 mcg/actuation HFA aerosol inhaler 2 inh inhalation QID PRN (Reason: shortness of breath or wheezing) Qty: 8.5 0RF fluoxetine 10 mg capsule Follow-up/Referrals: PHYSICIAN NOT ON STAFF,NONSTAFF [Primary Care Provider] - Time of Disposition: 11:05 Quality Ella Coma Scale Eyes: Open Verbal: Oriented and Alert Motor: Follows Commands [place]ed [place] Coma Total Score: 15
[2024-08-03 11:03] LABS: EDUAAPPEAR Cloudy; EDUABILI Negative (Negative); EDUABLOOD Trace (Negative); EDUACOLOR1 Yellow; EDUAGLUCOSE Negative (Negative); EDUAKETONE Negative (Negative); EDUALEUKO Negative (Negative); EDUANITRATE Positive (Negative); EDUAPROTEIN Negative (Negative); EDUASPGRAVITY 1.025; EDUAUROBILI 0.2
--- OUTSIDE RECORDS SUMMARY | 2024-08-03 11:22 | XMS_ITS | Clinical Summary ---
Author Organization [facility] Address [address] [place] [address] Phone Care Team Providers Care Electronic Game Developer Name Role Phone Karlo Dumont MD Primary Care Provider [phone] Allergies Active Allergy Reactions Criticality Noted Date Comments Ketorolac Nausea and Vomiting Low 11/17/2019 Morphine Other (See Comments) 03/19/2020 Feels flushed Prochlorperazine Anxiety Low 11/17/2019 Medications albuterol sulfate HFA 90 mcg/actuation aerosol inhalerIndicatio ns:Mild intermittent asthma without complication Take 2 Puffs by inhalation every 6 hours as needed for Shortness of Breath. 8.5 Gram 2 11/13/19 24 Active budesonide-formo teroL (SYMBICORT) 80-4.5 mcg/actuation HFA Aerosol InhalerIndicatio ns:Mild intermittent asthma without complication Take 2 Puffs by inhalation 2 times daily. 10.2 Gram 2 04/11/20 24 Active hydrOXYzine HCL (ATARAX) 25 mg tabletIndication s:Generalized anxiety disorder Take 1-2 Tablets (25-50 mg) by mouth 3 times daily as needed for Itching or Anxiety. 30 Tablet 5 06/06/20 24 Active FLUoxetine (PROzac) 10 mg capsuleIndicatio ns:Generalized anxiety disorder TAKE 1 CAPSULE(10 MG) BY MOUTH DAILY 90 Capsule 3 07/05/20 24 Active FLUoxetine (PROzac) 10 mg capsuleIndicatio ns:Generalized anxiety disorder TAKE 1 CAPSULE(10 MG) BY MOUTH DAILY 90 Capsule 04/04/20 24 024 Discontinued Active Problems Patient Care Coordination No te Formatting of this note migh t be different from the original. 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 Iron deficiency anemia 09/04/2014 Overview (10/25/2022): Normal off replacement October 26 Resolved Problems Problem Noted Date Diagnosed Date Resolved Date S/P vaginal hysterectomy 05/16/2020 Pre-eclampsia, severe, delivered 03/09/2020 10/23/2022 Infection due to trichomonas 03/09/2020 03/29/2020 (spontaneous vaginal delivery) 02/27/2020 03/09/2020 Pyelonephritis affecting 02/26/2020 03/09/2020 Anemia complicating 01/20/2020 03/09/2020 Anxiety state 01/20/2020 08/24/2020 Grand multiparity 12/07/2019 03/09/2020 Supervision of high risk pre gnancy in second trimester 11/20/2019 03/09/2020 Overview (12/21/2019): Secondary to AMA, Grand Multip, Hypothyroidism, & Hx Nephrolithiasis Maternal age > 35, multigravida 11/20/2019 03/09/2020 Grand multiparity with anten atal problem in second trimester 11/20/2019 03/09/2020 Nephrolithiasis 11/20/2019 03/09/2020 Anemia during 09/04/201410/05 Anxiety in , antepartum 08/14/2014 10/23/2022 Rh negative state in antepartum period 07/11/2014 10/23/2022 Rubella non-immune status, antepartum 07/11/2014 10/23/2022 Supervision of other normal 06/12/2014 10/23/2022 Decreased movements in third trimester 03/09/2020 False labor 03/09/2020 Gestational hypertension, third trimester 03/09/2020 Intractable migraine with au ra without status migrainosus 03/29/2020 Iron deficiency anemia nancy rodas to inadequate dietary iron intake 0 History of idiopathic thromb ocytopenic purpura 03/09/2020 History of gestational hypertension 03/09/2020 Threatened labor at term 10/2019 Encounters Date Type Department Care Team Description 07/28/2024 External Device Data [facility] Provider, Abstract 07/19/2024 External Device Data [facility] Provider, Abstract 07/04/[address] [address] Rocío Smith FNP Generalized anxiety disorder 06/07/2024 External Device Data [facility] Provider, Abstract 06/04/[address] [address] Rocío Smith FNP Generalized anxiety disorder 05/16/2024 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 Anesthesia Event [facility] - [id number] [facility] [id number] [facility] [facility] [address] [place] [address] Ginny Robert CRNA 05/04/2024 External Device Data [facility] Provider, Abstract from Last 3 Months Immunizations Immunization Administration Dates Next Due (ADACEL/BOOSTRIX)(10 YR UP) TDAP VACCINE, 0.5ML, IM 12/21/2019,08/25/2014 (HAVRIX/VAQTA)(19 YRS UP) HE PATITIS A VACCINE ADULT DOSAGE 1 ML IMM 01/08/2021 (RECOMBIVAX HB/ENGERIX-B)(11 YR UP) HEPATITIS B VACCINE 10 MCG/1 ML OR 20 MCG/1 ML ADOL OR ADULT 2 - 3 DOSE PF, IM 09/03/2017 Pneumococcal conjugate, unspecified formulation 10/09/2013 Rho (D) IMMUNE GLOBULIN 1,500 UNIT(300 MCG) INJE CTION 08/25/2014 Family History Medical History Relation Name Comments Healthy Brother 1 Healthy Daughter 1 Healthy Father Other Maternal Grandfather Unknown Other Maternal Grandmother Cancer Mother cervical, pancr eatic, lung and liver Other Mother hepatitis C Healthy Sister 1 Healthy Son 1 Relation Name Status Comments Brother 1 Brother 2 Alive Daughter 1 Daughter 2 Alive Father Alive Maternal Grandfather Unknown Other Maternal Grandmother Alive Mother Alive Paternal Grandfather Paternal Grandmother Sister 1 Sister 2 Alive Son 1 Son 2 Alive Social History Tobacco Use Types Packs/Day Years Used Date Smoking Tobacco: Former Cigarettes Q uit: 10/30/2019 Passive Smoke Exposure: Past Smokeless Tobacco: Never Alcohol Use Standard Drinks/Week Comments No 2 (1 standard drink = 0.6 oz pur e alcohol) social Feeling Safe Answer Date Recorded Within the last year, have y ou been afraid of your partner or ex-partner? Patient declined 02/09/2020 Within the last year, have y ou been humiliated or emotionally abused in other ways by your partner or ex-partner? Patient declined 02/09/2020 Within the last year, have y ou been kicked, hit, slapped, or otherwise physically hurt by your partner or ex-partner? Patient declined 02/09/2020 Within the last year, have y ou been raped or forced to have any kind of sexual activity by your partner or ex-partner? Patient declined 02/09/2020 Social Connections Answer Date Recorded In a typical week, how many times do you talk on the phone with family, friends, or neighbors? Patient declined 02/09/2020 How often do you get togethe r with friends or relatives? Patient declined 02/09/2020 How often do you attend faith or latter day serv ices? Patient declined 02/09/2020 Do you belong to any clubs o r organizations such as faith groups, unions, fraternal or athletic groups, or school groups? Patient declined 02/09/2020 How often do you attend meet ings of the clubs or organizations you belong to? Patient declined 02/09/2020 Are you , , di vorced, , never , or living with a partner? Patient declined 02/09/2020 Financial Resource Strain Answer Date R ecorded How hard is it for you to pa y for the very basics like food, housing, medical care, and heating? Patient declined 02/09/2020 Food Insecurity Answer Date Recorded Within the past 12 months, y ou worried that your food would run out before you got the money to buy more. Patient declined Within the past 12 months, t he food you bought just didn't last and you didn't have money to get more. Patient declined 12/2019 Transportation Needs Answer Date Record ed In the past 12 months, has l ack of transportation kept you from medical appointments or from getting medications? Patient declined 02/09/2020 In the past 12 months, has l ack of transportation kept you from meetings, work, or from getting things needed for daily living? Patient declined 02/09/2020 Feeling Safe Answer Date Recorded Are you in a relationship wi th someone who hurts you emotionally and/or physically? 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11 04/11/2024 8:10 AM CDT Plan of Treatment Health Maintenance Due Date Last Done Comments PNEUMOCOCCAL VACCINE 0-64 YE ARS (1 of 2 - PCV) 1982 10/09/2013 CERVICAL CANCER SCREENING 2006 HEPATITIS B VACCINES (2 of 3 - 19+ 3-dose series) 10/01/2017 09/03/2017 COLORECTAL SCREENING 2021 Colorectal Cancer Screening 2021 FIT-DNA Q 3 years 2021 FIT/FOBT Q 1 year 2021 Flex Sig/CT Colonography Q 5 years 2021 BREAST CANCER SCREENING 10/15/2021 10/15/2020 DTAP/TDAP/TD VACCINES (3 - T d or Tdap) 12/20/2029 12/21/2019, 08/25/2014 INFLUENZA VACCINE Completed 04/11/2024, , 10/23/2022, Additional history exists Procedures Procedure Name Priority Date/Time Associated Diagnosis Comments MAMMO 3D BRUNO SCREEN BILAT W OR WO CAD Routine 10/15/2020 1:23 PM CDT Screening mammogram, encounter for from Last 3 Months or Most Recently Relevant to Health Maintenance Results * MAMMO SCRN BILAT 3D BRUNO W OR WO CAD (10/15/2020 1:23 PM CDT) Anatomical Region Laterality Modality Breast Bilateral Mammography Narrative 10/15/2020 1:58 PM CDT Bilateral Digital Mammogram with CAD and 3D Tomography Reason for Exam: Screening Comparison: This is a baseline exam. Technique: 3D MLO and CC digital tomosynthesis images were acquired and synthesized 2D images (C view) were generated. ??This digital mammogram was also analyzed by the Computer Aided Detection System CAD). Findings: ??There are scattered areas of fibroglandular density. There are no suspicious masses, areas of architectural distortions, or microcalcifications to suggest malignancy. ?? Impression: Negative screening mammogram. Recommendation: Routine annual follow-up Overall Assessment: Birads Category 1: Negative Myra Head ANIMAL TECHNICIAN MAMMO ORDERABLES Final Result from Last 3 Months or Most Recently Relevant to Health Maintenance Insurance RX INFOCROSSING Medicaid RX [place] (INTERNAL) [facility] [address] [place] [id number] [address] [address] Advance Directives For more information, please contact: [phone] * Full Code (Latest Code Status on File) Date Activated Date Inactivated Comments 05/07/2020 4:27 PM 05/08/2020 4:34 AM * Full Code Date Activated Date Inactivated Comments 05/07/2020 12:32 PM 05/07/2020 4:27 PM * Full Code Date Activated Date Inactivated Comments 05/07/2020 12:15 PM 05/07/2020 12:31 PM * Full Code Date Activated Date Inactivated Comments 05/07/2020 10:57 AM 05/07/2020 12:15 PM * Full Code Date Activated Date Inactivated Comments 02/28/2020 3:18 AM 03/01/2020 3:39 PM Care Teams Electronic Game Developer Relationship Specialty Start Date End Date Karlo Dumont MD [address] [place] [id number] PCP - General Family Practice 05/22/20
== END 2024-08-03 11:21 | disposition home or self-care (01) ==
PROVIDERS: Emergency Provider Registered Nurse
DX: N39.0 Urinary tract infection, site not specified (principal); B96.20 Unspecified Escherichia coli [E. coli] as the cause of diseases classified elsewhere; R31.9 Hematuria, unspecified; F17.290 Nicotine dependence, other tobacco product, uncomplicated; J45.909 Unspecified asthma, uncomplicated; Z86.16 Personal history of COVID-19
CPT/HCPCS: 81003; 87077; 87086; 87186; 99213; G0463

== ENCOUNTER 2024-08-18 11:01 | Emergency (ER) | payer OTHER, SELFPAY ==
--- OUTSIDE RECORDS SUMMARY | 2024-08-18 11:15 | XMS_ITS | Clinical Summary ---
Author Organization [facility] Address [address] [place] [address] Phone Care Team Providers Care Director Statistical Programming Name Role Phone Karlo Dumont MD Primary Care Provider [phone] Allergies Active Allergy Reactions Criticality Noted Date Comments Ketorolac Nausea and Vomiting Low 11/17/2019 Morphine Other (See Comments) 03/19/2020 Feels flushed Prochlorperazine Anxiety Low 11/17/2019 Medications albuterol sulfate HFA 90 mcg/actuation aerosol inhalerIndication s:Mild intermittent asthma without complication Take 2 Puffs by inhalation every 6 hours as needed for Shortness of Breath. 8.5 Gram 2 4 Active budesonide-formot Yves (SYMBICORT) 80-4.5 mcg/actuation HFA Aerosol InhalerIndication s:Mild intermittent asthma without complication Take 2 Puffs by inhalation 2 times daily. 10.2 Gram 2 4 Active hydrOXYzine HCL (ATARAX) 25 mg tabletIndications :Generalized anxiety disorder Take 1-2 Tablets (25-50 mg) by mouth 3 times daily as needed for Itching or Anxiety. 30 Tablet 5 4 Active FLUoxetine (PROzac) 10 mg capsuleIndication s:Generalized anxiety disorder TAKE 1 CAPSULE(10 MG) BY MOUTH DAILY 90 Capsule 3 4 Active Active Problems Patient Care Coordination No te Formatting of this note migh t be different from the original. Discharged from [facility] 06/25/20 Problem Noted Date Diagnosed Date [...] Device Data STL ABSTRACTION Provider, Abstract 07/04/[address] [address] Rocío Smith FNP Generalized anxiety disorder 06/07/2024 External Device Data STL ABSTRACTION Provider, Abstract 06/04/[address] [address] Rocío Smith, BRIGID Generalized anxiety disorder from Last 3 Months Immunizations Immunization Administration [...] declined 02/09/2020 How often do you attend jainism or mu-ism serv ices? 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 This digital mammogram was also analyzed by the Computer Aided Detection System CAD). Findings: There are scattered areas of fibroglandular density. There are no suspicious masses, areas of architectural distortions, or microcalcifications to suggest malignancy. Impression: Negative screening mammogram. Recommendation: Routine annual follow-up Overall Assessment: Birads Category 1: Negative Myramayco Head MEDICAL PRACTICE ASSISTANT MAMMO ORDERABLES Final Result from Last 3 Months or Most Recently Relevant to Health Maintenance Insurance RX INFOCROSSING Medicaid RX [place] (INTERNAL) [facility] Internal [facility] Advance Directives For more information, please contact: [phone] * Full Code (Latest Code Status on [...] 3:18 AM 03/01/2020 3:39 PM Care Teams Director Statistical Programming Relationship Specialty [place] [address] [place] [id number] PCP - General Family Practice 05/22/20
[2024-08-18 11:30] VITALS: BP 108/89; PULSE 107; RESP 18; TEMP 37.3; O2SAT 100
[2024-08-18 12:56] LABS: EDCOVIDSCREEN Negative (Negative); EDINFLUASCREEN Negative (Negative); EDINFLUBSCREEN Negative (Negative)
--- NOTE | 2024-08-18 12:57 | ED.URI ---
HPI - URI/Sore Throat General Chief Complaint: Upper Respiratory Infection Stated Complaint: trouble breathing/lungs hurt Time Seen by Provider: 08/18/24 12:15 Source: patient, RN notes reviewed and old records reviewed Mode of arrival: ambulatory Limitations: no limitations History of Present Illness HPI Narrative: 49 year old female presents to [facility] care with complaints of increased dyspnea since Thursday evening with history of asthma. Patient reports that she has had cough and congestion and she has had some fevers. Patient reports that she has been using her inhaler, taking Ibuprofen and Tylenol and has taken some Benadryl for her symptoms. Patient does vape. MD elicited complaint: fever, cough, rhinorrhea, nasal congestion and other (dyspnea) Pertinent past history: asthma Onset (ago): day(s) (3) Severity: moderate Able to tolerate fluids by mouth: Yes Treatments prior to arrival: acetaminophen, ibuprofen and other (inhaler and Benadryl) Related Data Home Medications ?Medication ?Instructions ?Recorded ?Confirmed ?Last Taken ?Type budesonide-formoterol HFA 80 2 puff inhalation BID 12/10/23 08/18/24 Unknown History mcg-4.5 mcg/actuation aerosol inhaler fluoxetine 10 mg capsule mg 08/03/24 Unknown History Allergies Allergy/AdvReac Type Severity Reaction Status Date / Time morphine Allergy Unknown Unknown Verified 08/18/24 11:59 ketorolac (From Toradol) AdvReac Gastrointestinal Verified 08/18/24 11:59 Upset prochlorperazine (From AdvReac Jittery Verified 08/18/24 11:59 Compazine) Review of Systems Review of Systems: CONSTITUTIONAL: REports malaise, chills, sweats, or fever. EYES: Denies visual changes, redness, or discharge. ENT: Reports rhinorrhea, congestion, sinus pain, no otalgia and no sore throat. CARDIOVASCULAR: Denies chest pain, palpitations, or edema. RESPIRATORY: Reports cough.? Reports some dyspnea. GASTROINTESTINAL: Denies abdominal pain, nausea, vomiting, diarrhea SKIN: Denies rash or itching. MUSCULOSKELETAL: Denies myalgia. NEUROLOGIC: Denies headache. All systems reviewed & are unremarkable except as noted in HPI and below PMFSH Past Medical History Medical History Urinary tract infection History of RSV infection COVID-19 Bronchitis Asthma Surgical History Surgical History Hx of cholecystectomy H/O: hysterectomy Social History Social History Smoking status: Current every day smoker Tobacco type: e-cigarettes/vaping Living arrangements: with family Gender identity (if verbalized by the patient): Female Comments At time of signature, agree with nursing past medical, surgical, social and family history. There is no relevant family history pertinent to the presenting complaint Exam Narrative: GENERAL: Well-appearing, well-nourished, and in no acute distress. HEAD: Normocephalic EYES: PERRLA, conjunctivae clear ENT: Nares clear, turbinates edematous and erythematous, clear discharge. Mucous membranes moist. TM pearly siegel with dull light reflex bilaterally; no tragal tenderness. Oropharynx erythematous without lesions. Tonsils not enlarged and without exudate, no drooling, no hoarseness, no trismus, uvula midline. NECK: Supple. No lymphadenopathy CHEST: Clear to auscultation, breath sounds equal. No wheezing, rhonchi, rales, or stridor. No respiratory distress, speaks in full sentences.cough noted SAO2 100% on room air, no tachypnea or retractions noted. HEART: Regular rate and rhythm. No murmur heard. SKIN: Warm, dry, no rash. NEURO: Alert and oriented x3. PSYCH: Normal mood and affect Course Course Emergency Course: Patient is aware of diagnosis, understands and agrees to treatment plan.? Anticipatory guidance given.? Patient agrees to follow-up as directed and is aware of reasons to seek care at the emergency department. Portions of this record may have been created with voice recognition software Level of Care: Express Care Visit Vital Signs Vital signs: Vital Signs Temperature 37.3 C 08/18/24 11:30 Pulse Rate 107 H 08/18/24 11:30 Respiratory Rate 18 08/18/24 11:30 Blood Pressure 108/89 08/18/24 11:30 Pulse Oximetry 100 08/18/24 11:30 Oxygen Delivery Room Air 08/18/24 11:30 Temperature 37.3 C 08/18/24 11:30 Pulse Rate 107 H 08/18/24 11:30 Respiratory Rate 18 08/18/24 11:30 Blood Pressure 108/89 08/18/24 11:30 Pulse Oximetry 100 08/18/24 11:30 Oxygen Delivery Room Air 08/18/24 11:30 Reviewed MDM - URI/Sore Throat MDM Narrative Medical decision making narrative: Differential diagnosis considered: Means virus, strep pharyngitis, allergic rhinitis, upper respiratory tract infection, sinusitis, rhinosinusitis, nasopharyngitis. viral pharyngitis, otitis media, otitis externa, pneumonia, bronchitis, viral cough syndrome, viral syndrome, and influenza.? Exam findings show no acute concerns or changes; patient is non-toxic appearing and is in no distress.? Patient is appropriate for outpatient treatment and follow-up. Differential Diagnosis Differential diagnosis: Likely upper respiratory infection, viral infection, influenza and other (COVID, acute cough.) Medical Records Attestation: I reviewed the patient's medical records. Lab Data Attestation: I reviewed the patient's lab results. Lab results narrative: Influenza A negative, Influenza B negative, COVID antigen negative. Labs: Lab Results 08/18/24 Range/Units 11:54 POC Influenza A Ag Negative (Negative) POC Influenza B Ag Negative (Negative) POC SARS CoV-2 Ag Negative (Negative) reviewed Critical Care Time Critical Care Time Critical Care Time: No Discharge Plan Discharge Clinical Impression: URI, acute Cough Qualifiers: Cough type: acute Qualified Code(s): R05.1 - Acute cough Patient Disposition: Home, Self-Care Condition: Stable Instructions: Upper Respiratory Infection (ED), Acute Cough (ED) Additional Instructions: Increase fluids especially juices and water Mngk-nww-xwjyciy cough and cold medicine of your choice for your symptoms Tylenol or ibuprofen for any fever pain Continue your inhaler/nebulizer as directed Steroids as directed--take with food heat to the face 20-30 minutes 4-6 times a day for pain Salt water gargles, throat lozenges or throat sprays as desired Zyrtec Claritin or Carlee daily Monitor for any fevers every 4 hours Must be fever free without Tylenol or ibuprofen before he can return to work Patient Language: Greenlandic Prescriptions: New methylprednisolone [Medrol (Idris)] 4 mg tablets,dose pack See Rx Instructions .ROUTE .COMPLEX Qty: 21 0RF Rx Instructions: orally per package directions No Action albuterol sulfate 90 mcg/actuation HFA aerosol inhaler 2 puff inhalation QID PRN (Reason: shortness of breath or wheezing) Qty: 6.7 0RF budesonide-formoterol 80-4.5 mcg/actuation HFA aerosol inhaler 2 puff INHALATION BID albuterol sulfate 90 mcg/actuation HFA aerosol inhaler 2 inh inhalation QID PRN (Reason: shortness of breath or wheezing) Qty: 8.5 0RF fluoxetine 10 mg capsule sulfamethoxazole-trimethoprim [Bactrim DS] 800-160 mg tablet 1 tablet PO Q12H Qty: 20 0RF Rx Instructions: Take all doses of medication Follow-up/Referrals: PHYSICIAN NOT ON STAFF,NONSTAFF [Primary Care Provider] - Time of Disposition: 13:07 Quality Ella Coma Scale Eyes: Open Verbal: Oriented and Alert Motor: Follows Commands [place] Coma Total Score: 15
== END 2024-08-18 13:11 | disposition home or self-care (01) ==
PROVIDERS: Emergency Provider Registered Nurse
DX: J06.9 Acute upper respiratory infection, unspecified (principal); F17.290 Nicotine dependence, other tobacco product, uncomplicated; Z20.822 Contact with and (suspected) exposure to COVID-19
CPT/HCPCS: 87426; 87804; 99213; G0463

== ENCOUNTER 2024-11-29 09:03 | Emergency (ER) | payer OTHER, SELFPAY ==
--- OUTSIDE RECORDS SUMMARY | 2024-11-29 09:06 | XMS_ITS | Clinical Summary ---
Author Organization [facility] Address [address] [place] [address] Phone Care Team Providers Care Crew Dispatcher Name Role Phone Karlo uDmont MD Primary Care Provider [phone] Allergies Active Allergy Reactions Criticality Noted Date Comments Ketorolac Nausea and Vomiting Low 11/17/2019 Morphine Other (See Comments) 03/19/2020 Feels flushed Prochlorperazine Anxiety Low 11/17/2019 Medications hydrOXYzine HCL (ATARAX) 25 mg tabletIndications :Generalized anxiety disorder Take 1-2 Tablets (25-50 mg) by mouth 3 times daily as needed for Itching or Anxiety. 30 Tablet 5 4 Active FLUoxetine (PROzac) 10 mg capsuleIndication s:Generalized anxiety disorder TAKE 1 CAPSULE(10 MG) BY MOUTH DAILY 90 Capsule 3 4 Active albuterol sulfate HFA 90 mcg/actuation aerosol inhalerIndication s:Mild intermittent asthma without complication Take 2 Puffs by inhalation every 6 hours as needed for Shortness of Breath. 8.5 Gram 5 5 Active budesonide-formot Yves (SYMBICORT) 80-4.5 mcg/actuation HFA Aerosol InhalerIndication s:Mild intermittent asthma without complication Take 2 Puffs by inhalation 2 times daily. 10.2 Gram 5 5 Active Active Problems Patient Care Coordination No te Formatting of this note migh t be different from the original. Discharged from [facility] 06/25/20 Problem Noted Date Diagnosed [...] Encounters Date Type Department Care Team Description 11/15/2024 External Device Data STL ABSTRACTION Provider, Abstract 09/29/2024 Results Follow-Up [address] [id number] Citlalli Torres, DANCE THERAPIST XR WRIST 3+ VW LEFT 09/27/2024 4:15 PM CDT Ancillary Procedure [address] [phone] Citlalli Torres, DANCE THERAPIST Left wrist pain 09/27/2024 3:40 PM CDT Office Visit [address] [phone] Citlalli Torres, DANCE THERAPIST Mild intermittent asthma without complication (Primary Dx); Encounter for screening colonoscopy; Left wrist pain 09/19/[address] [address] Karlo Dumont MD inhaler 09/16/2024 Refill [facility] [address] [phone] Merlene Welch, BRIGID Mild intermittent asthma without complication 09/13/2024 External Device Data STL ABSTRACTION Provider, Abstract 09/13/2024 External Device Data STL ABSTRACTION Provider, Abstract 09/06/2024 External Device Data STL ABSTRACTION Provider, Abstract [...] declined 02/09/2020 How often do you attend catholic or nondenominational serv ices? 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 Gender Identity Female 01/08/2024 7:07 PM CDT Sexual Orientation Not on file Occupation Industry Job Start Date Job End Date Not on file Not on file Not on file Not on file Last Filed Vital Signs Vital Sign Reading Time Taken Comments Blood Pressure 130/72 09/27/2024 3:53 PM CDT Pulse 92 09/27/2024 3:53 PM CDT Temperature 37.1 C (98.7 F) 09/27/2024 3:53 PM CDT Respiratory Rate 16 11/13/2023 7:36 PM CDT Oxygen Saturation 95% 09/27/2024 3:53 PM CDT Inhaled Oxygen Concentration - - Weight 61.9 kg (136 lb 6.4 oz) 09/27/2024 3:53 P M CDT Height 167.6 cm (5' 6) 09/27/2024 3:53 PM CDT Body Mass Index 22.02 09/27/2024 3:53 PM CDT Plan of Treatment Health Maintenance Due Date Last Done Comments HEPATITIS B VACCINES (2 of 3 - 19+ 3-dose series) 10/01/2017 09/03/2017 COLORECTAL SCREENING 2021 Colorectal Cancer Screening 2021 FIT-DNA Q 3 years 2021 FIT/FOBT Q 1 year 2021 Flex Sig/CT Colonography Q 5 years 2021 BREAST CANCER SCREENING 12/26/2024 10/15/2020 Post poned from 10/15/2021 (Patient Refused) DTAP/TDAP/TD VACCINES (3 - Td or Tdap) 12/20/2029 12/21/2019, 08/25/2014 INFLUENZA VACCINE Completed 04/11/2024, , 10/23/2022, Additional history exists Procedures Procedure Name Priority Date/Time Associated Diagnosis Comments XR WRIST 3+ VW LEFT Routine 09/27/2024 4 :19 PM CDT Left wrist pain MAMMO 3D BRUNO SCREEN BILAT W OR WO CAD Routine 10/15/2020 1:23 PM CDT Screening mammogram, encounter for from Last 3 Months or Most Recently Relevant to Health Maintenance Results * XR WRIST 3+ VW LEFT (09/27/2024 4:19 PM CDT) Anatomical Region Laterality Modality Wrist / Hand Computed Radiogr aphy 09/27/2024 4:19 PM CDT Impressions 09/29/2024 6:16 AM CDT IMPRESSION: 1. No acute osseous abnormality identified. DICTATION LOCATION: Location 4 Narrative 09/29/2024 6:16 AM CDT XR WRIST 3+ VW LEFT DATE: 09/27/2024 4:19 PM HISTORY: Left wrist pain. COMPARISON: None. EXAMINATION: Four views of the left wrist. FINDINGS: There is a 2 mm well-corticated ossicle at the dorsal aspect of the wrist which is most likely due to an old injury. There is no acute fracture or dislocation. No significant degenerative change. Procedure Note Forrest Hodgson MD - 09/29/2024 XR WRIST 3+ VW LEFT DATE: 09/27/2024 4:19 PM HISTORY: Left wrist pain. COMPARISON: None. EXAMINATION: Four views of the left wrist. FINDINGS: There is a 2 mm well-corticated ossicle at the dorsal aspect of the wrist which is most likely due to an old injury. There is no acute fracture or dislocation. No significant degenerative change. IMPRESSION: 1. No acute osseous abnormality identified. DICTATION LOCATION: Location 4 Citlalli Torres DANCE THERAPIST DIAGNOSTIC IMAGING ORDERA BLES Final Result * MAMMO SCRN BILAT 3D BRUNO W [...] Assessment: Birads Category 1: Negative Myra Head DANCE THERAPIST MAMMO ORDERABLES Final Result from Last 3 Months or Most Recently Relevant to Health Maintenance Insurance RX INFOCROSSING Medicaid RX [place] (INTERNAL) [facility] [address] [address] Advance Directives For more information, please contact: [phone] * Full Code (Latest Code Status on [...] 3:18 AM 03/01/2020 3:39 PM Care Teams Crew Dispatcher Relationship Specialty Start Date End Date Karlo Dumont MD [address] [place] [address] PCP - General Family Practice 05/22/20
--- OUTSIDE RECORDS SUMMARY | 2024-11-29 09:06 | XMS_ITS | Encounter Summary ---
Author Organization [facility] Address [address] [place] [address] Care Team Providers Care Live Games Dealer Name Role Phone Karlo Dumont MD Primary Care Provider [phone] Encounter Details Date Type Department Care Team (Late st Contact Info) Description 09/29/2024 Results Follow-Up [address] [phone] Citlalli Torres, [address] [phone] XR WRIST 3+ VW LEFT Social History Tobacco Use Types Packs/Day Years [...] declined 02/09/2020 How often do you attend gnosticist or temple serv ices? 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 Gender Identity Female 01/08/2024 7:07 PM CDT Sexual Orientation Not on file Occupation Industry Job Start Date Job End Date Not on file Not on file Not on file Not on file documented as of this encounter Plan of Treatment Not on file documented as of this encounter Visit Diagnoses Not on filedocumented in this encounter Additional Health Concerns Assessment Noted Time PHQ-9 Depression Total Score: 1 09/28/19 25 3:00 PM CDT documented as of this encounter Care Teams Live Games Dealer Relationship Specialty Start Date End Date Karlo Dumont MD [address] [place] [address] PCP - General Family Practice 05/22/20 documented as of this encounter
[2024-11-29 09:07] VITALS: BP 131/85; PULSE 102; RESP 16; TEMP 36.2; O2SAT 100
--- OUTSIDE RECORDS SUMMARY | 2024-11-29 10:25 | XMS_ITS | Clinical Summary ---
Author Organization [facility] Address [address] [place] [address] Phone Care Team Providers Care Movie Extra Name Role Phone Karlo Dumont MD Primary Care Provider [phone] Allergies Active Allergy Reactions Criticality Noted Date [...] be different from the original. Discharged from [facility] 06/25/20 Problem Noted Date [...] STL ABSTRACTION Provider, Abstract 09/29/2024 Results Follow-Up [address] [phone] Citlalli Torres, DIAL EQUIPMENT ENGINEER XR WRIST 3+ VW LEFT 09/27/2024 4:15 PM CDT Ancillary Procedure [address] [phone] Citlalli Torres, DIAL EQUIPMENT ENGINEER Left wrist pain 09/27/2024 3:40 PM CDT Office Visit [address] [phone] Citlalli Torres, DIAL EQUIPMENT ENGINEER Mild intermittent asthma without complication (Primary Dx); Encounter for screening colonoscopy; Left wrist pain 09/19/[address] [phone] Karlo Dumont MD inhaler 09/16/[address] [facility] [address] [phone] Merlene Welch, BRIGID Mild intermittent asthma without [...] declined 02/09/2020 How often do you attend evangelical or orthodoxy serv ices? 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 DICTATION LOCATION: Location 4 Citlalli Torres DIAL EQUIPMENT ENGINEER DIAGNOSTIC IMAGING ORDERA BLES Final Result * [...] Assessment: Birads Category 1: Negative Myra Head DIAL EQUIPMENT ENGINEER MAMMO ORDERABLES Final Result from Last 3 Months or Most Recently Relevant to Health Maintenance Insurance RX INFOCROSSING Medicaid RX [place] (INTERNAL) [facility] [address] [address] Advance Directives For more information, please contact: [phone] * Full Code (Latest Code Status on [...] 3:18 AM 03/01/2020 3:39 PM Care Teams Movie Extra Relationship Specialty Start Date End Date Karlo Dumont MD [address] [place] [address] PCP - General Family Practice 05/22/20
--- OUTSIDE RECORDS SUMMARY | 2024-11-29 10:25 | XMS_ITS | Encounter Summary ---
Author Organization [facility] Address [address] [place] [address] Care Team Providers Care Packaging Mechanic Name Role Phone Karlo Dumont MD Primary Care Provider [phone] Encounter Details Date Type Department Care Team (Late st Contact Info) Description 09/29/2024 Results Follow-Up [address] [phone] Citlalli Torres, [address] [phone] XR WRIST 3+ VW LEFT [...] How often do you attend faith or lutheran serv ices? 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
--- NOTE | 2024-11-29 10:29 | PC.NURSE ---
ice packs given for request/comfort
--- NOTE | 2024-11-29 11:07 | ED.SKABFB ---
HPI - Skin/Abscess/Foreign Bdy General Chief complaint: Skin/Abscess/Foreign Body Stated complaint: rash Time Seen by Provider: 11/29/24 10:02 Source: patient Mode of arrival: ambulatory Limitations: no limitations History of Present Illness HPI narrative: Patient is a 49-year-old female who presents the ED with report of a rash. Patient reports the rash has been ongoing for the past 10 days. States it began in between her breasts. She thought it may be heat rash at first. States it has continued to spread across her breasts/chest, is now spreading to her arms. States it is very itchy. She has been taking Benadryl for the itching. She has also been using a nystatin cream which she feels has been helping slightly. Denies difficulty breathing or swelling, fevers, known allergens, new soaps/lotions/detergents. Related Data Home Medications ?Medication ?Instructions ?Recorded ?Confirmed ?Last Taken ?Type budesonide-formoterol HFA 80 2 puff inhalation BID 12/10/23 08/18/24 Unknown History mcg-4.5 mcg/actuation aerosol inhaler fluoxetine 10 mg capsule mg 08/03/24 Unknown History Allergies Allergy/AdvReac Type Severity Reaction Status Date / Time morphine Allergy Unknown Unknown Verified 11/29/24 09:13 ketorolac (From Toradol) AdvReac Gastrointestinal Verified 11/29/24 09:13 Upset prochlorperazine (From AdvReac Jittery Verified 11/29/24 09:13 Compazine) Review of Systems Review of Systems: All systems reviewed & are unremarkable except as noted in HPI. All systems reviewed & are unremarkable except as noted in HPI and below PMFSH Past Medical History Medical History Urinary tract infection History of RSV infection COVID-19 Bronchitis Asthma Surgical History Surgical History Hx of cholecystectomy H/O: hysterectomy Social History Social History Smoking status: Current every day smoker Tobacco type: e-cigarettes/vaping Living arrangements: with family Gender identity (if verbalized by the patient): Female Exam Narrative: GENERAL: Well appearing, well-nourished, non-toxic, in no acute distress. HEAD: Normocephalic, atraumatic. RESPIRATORY: Airway patent, respirations nonlabored. CARDIOVASCULAR: Regular rate and rhythm MUSCULOSKELETAL: Moves all extremities. No gross deformities. Diffuse erythematous rash between rest and extending in intertrigo regions and forearms, diffuse papular lesions/macular. Some faint scaling present. SKIN: Warm, dry, normal color. NEURO: A&O X3. Speech clear. No ataxic movements. PSYCHIATRIC: Appropriate mood and affect. Normal interaction. Course Vital Signs Vital signs: Vital Signs Temperature 97.1 F L 11/29/24 09:07 Pulse Rate 102 H 11/29/24 09:07 Respiratory Rate 16 11/29/24 09:07 Blood Pressure 131/85 11/29/24 09:07 Pulse Oximetry 100 11/29/24 09:07 Oxygen Delivery Room Air 11/29/24 09:07 Temperature 97.1 F L 11/29/24 09:07 Pulse Rate 102 H 11/29/24 09:07 Respiratory Rate 16 11/29/24 09:07 Blood Pressure 131/85 11/29/24 09:07 Pulse Oximetry 100 11/29/24 09:07 Oxygen Delivery Room Air 11/29/24 09:07 MDM - Skin/Abscess/Foreign Bdy MDM Narrative Medical decision making narrative: Exam concerning for contact dermatitis versus intertrigo. Will treat for allergic and fungal process. Given dose of Solu-Medrol in the ED. Will discharge on Medrol Dosepak. Will also discharge with clotrimazole cream. Advised patient to continue Benadryl / Pepcid as needed. Recommended close follow-up with PCP for further evaluation given return precautions. Discharged in stable condition. Medical Records Attestation: I reviewed the patient's medical records. Discharge Plan Discharge Clinical Impression: Intertrigo Contact dermatitis Qualifiers: Contact dermatitis type: unspecified Contact dermatitis trigger: unspecified trigger Qualified Code(s): L25.9 - Unspecified contact dermatitis, unspecified cause Patient Disposition: Home Condition: Stable Instructions: Antibiotic Form, Contact Dermatitis (ED), Skin Yeast Infection (ED) Additional Instructions: Take steroids as prescribed. Utilize clotrimazole cream to areas of rash twice daily as needed. Avoid itching as much as possible. Keep areas clean and dry. You may continue Benadryl as needed for itching. You may use Zyrtec/claritin throughout the day which can be less sedating than Benadryl. You may also use pepcid as needed for itching. Follow-up with your primary care doctor for further evaluation. Return to the ED for new or worsening concerns. Patient Language: [place]an Prescriptions: New methylprednisolone [Medrol (Idris)] 4 mg tablets,dose pack See Rx Instructions PO .COMPLEX Qty: 21 0RF Rx Instructions: orally per package directions clotrimazole 1 % cream 1 applic topical BID 14 Days Qty: 15 0RF No Action albuterol sulfate 90 mcg/actuation HFA aerosol inhaler 2 puff inhalation QID PRN (Reason: shortness of breath or wheezing) Qty: 6.7 0RF budesonide-formoterol 80-4.5 mcg/actuation HFA aerosol inhaler 2 puff INHALATION BID albuterol sulfate 90 mcg/actuation HFA aerosol inhaler 2 inh inhalation QID PRN (Reason: shortness of breath or wheezing) Qty: 8.5 0RF fluoxetine 10 mg capsule sulfamethoxazole-trimethoprim [Bactrim DS] 800-160 mg tablet 1 tablet PO Q12H Qty: 20 0RF Rx Instructions: Take all doses of medication methylprednisolone [Medrol (Idris)] 4 mg tablets,dose pack See Rx Instructions .ROUTE .COMPLEX Qty: 21 0RF Rx Instructions: orally per package directions Follow-up/Referrals: PHYSICIAN NOT ON STAFF,NONSTAFF [Primary Care Provider] - Stand Alone Forms: Work/School Release IP Time of Disposition: 11:15
--- NOTE | 2024-11-29 11:14 | PC.NURSE ---
bedside shift report received from Camille villela, taking over patient care at this time
[2024-11-29] MEDS: methylPREDNISolone SOD SUCC 125 MG VIAL IM (11:21)
== END 2024-11-29 11:30 | disposition home or self-care (01) ==
PROVIDERS: Emergency Provider Physician Assistant
DX: L30.4 Erythema intertrigo (principal); L25.9 Unspecified contact dermatitis, unspecified cause; J45.909 Unspecified asthma, uncomplicated
CPT/HCPCS: 96372; 99283; J2919